=== PATIENT | female | born 1940 | race Two or more races ===

== ENCOUNTER 2025-10-19 15:36 | Emergency (ER) | payer OTHER, MEDICAID ==
[~2025-10-19] VITALS: Ht 165.1 cm; Wt 79.0 kg
--- NOTE | 2025-10-19 15:56 | ED.PDOC ---
History of Present Illness HPI Comments This is a 85 year old female BIBA presenting to the ED with chief complaint of generalized weakness. EMS reports patient's family has noticed patient be more generally weak over the past few days with an associated near syncopal episode today when getting into a car. EMS states patient has been experiencing symptoms of cough, chills, abdominal pain, and diarrhea for the past few days, but no abdominal pain is noted at this time. Patient denies any N/V/D dizziness, fever, chills, headache, or syncope. 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 Family History Family History: Reviewed,noncontributory to illness Social History Smoker: Non-Smoker Alcohol: Denies ETOH Use Drugs: Denies Drug Use Lives In: Home Constitutional: reports: chills, weakness; denies: diaphoresis, fatigue, fever, malaise, sweats, others EENTM: denies: blurred vision, double vision, ear bleeding, ear discharge, ear drainage, ear pain, ear ringing, eye pain, eye redness, hearing loss, mouth pain, mouth swelling, nasal discharge, nose bleeding, nose congestion, nose pain, photophobia, tearing, throat pain, throat swelling, voice changes, others Respiratory: reports: cough; denies: hemoptysis, orthopnea, SOB at rest, shortness of breath, SOB with excertion, stridor, wheezing, others Cardiovascular: reports: lightheadedness; denies: chest pain, dizzy spells, diaphoresis, Dyspnea on exertion, edema, irregular heart beat, left arm pain, palpitations, PND, syncope, others Gastrointestinal: reports: abdominal pain, diarrhea; denies: abdomen distended, blood streaked bowels, constipated, dysphagia, difficulty swallowing, hematemesis, melena, nausea, poor appetite, poor fluid intake, rectal bleeding, rectal pain, vomiting, others Genitourinary: denies: abnormal vagina bleeding, burning, dyspareunia, dysuria, flank pain, frequency, hematuria, incontinence, pain, , vagina discharge , urgency, others Neurological: denies: dizziness, fainting, headache, left sided numbness, left sided weakness, numbness, paresthesia, pre-existing deficit, right sided numbness, right sided weakness, seizure, speech problems, tingling, tremors, weakness, others Musculoskeletal: denies: back pain, gout, joint pain, joint swelling, muscle pain, muscle stiffness, neck pain, others Integumetry: denies: bruises, change in color, change in hair/nails, dryness, laceration, lesions, lumps, rash, wounds, others Allergic/Immunocompromised: denies: Difficulty Healing, Frequent Infections, Hives, Itching, others Hematologic/Lymphatic: denies: anemia, blood clots, easy bleeding, easy bruising, swollen glands, others Endocrine: denies: excessive hunger, excessive sweating, excessive thirst, excessive urination, flushing, intolerance to cold, intolerance to heat, unexplained weight gain, unexplained weight loss, others Psychiatric: denies: anxiety, bipolar disorder, depression, hopeless, panic di sorder, schizophrenia, sleepless, suicidal, others All Other Systems: Reviewed and Negative Physical Exam General Appearance: No Apparent Distress, Normal HEENT: Normal ENT Inspection, Pharynx Normal, TMs Normal Neck: Full Range of Motion, Non-Tender, Normal, Normal Inspection Respiratory: Chest Non-Tender, Lungs Clear, No Accessory Muscle Use, No Respiratory Distress, Normal Breath Sounds Cardiovascular: No Edema, No JVD, No Murmur, No Gallop, Normal Peripheral Pulses, Regular Rate/Rhythm Breast Exam: Deferred Gastrointestinal: No Organomegaly, Non Tender, No Pulsatile Mass, Normal Bowel Sounds, Soft Genitalia: Deferred Pelvic: Deferred Rectal: Deferred Extremities: No calf tenderness, Normal capillary refill, Normal inspection, Normal range of motion, Non-tender, No pedal edema Musculoskeletal : Apperance: Normal Neurologic: Alert, educational psychologist II-XII nml as Tested, No Motor Deficits, Normal Affect, Normal Mood, No Sensory Deficits Cerebellar Function: Normal Reflexes: Normal Skin: Dry, Normal Color, Warm Lymphatic: No Adenopathy Was a procedure done? Was a procedure done?: No Differential Dx Considerations may include: SMALL-BOWEL OBSTRUCTION, GASTROENTERITIS, UROSEPSIS, URINARY TRACT INFECTION X-Ray, Labs, Meds, VS Vital Signs Date Time Temp Pulse Resp B/P (MAP) Pulse Ox O2 Delivery O2 Flow Rate FiO2 10/19/25 19:30 97.7 83 17 168/63 (98) 97 97.7 10/19/25 19:30 83 13 97 Nasal Cannula* 2 28 10/19/25 18:10 86 14 171/78 (109) 96 10/19/25 16:15 86 16 97 Room Air* 0 21 10/19/25 16:10 98.3 86 16 174/78 (110) 97 98.3 10/19/25 15:46 97.7 90 16 171/80 97 97.7 Lab Test 10/19/25 19:08 10/19/25 19:07 10/19/25 16:12 10/19/25 16:10 Range/Units POC Glucose 213 H 70-106 mg/dl Troponin I High Sensitivity 6 3 L </=34 ng/L White Blood Count 6.2 4.4-10.8 10^3/uL Red Blood Count 4.06 4.0-5.20 10^6/uL Hemoglobin 12.9 12.2-16.2 g/dL Hematocrit 38.3 36.0-46.0 % Mean Corpuscular Volume 94.2 80.0-100.0 fL Mean Corpuscular Hemoglobin 31.9 28.0-32.0 pg Mean Corpuscular Hemoglobin Concent 33.8 32.0-36.0 g/dL Red Cell Distribution Width 14.2 11.8-14.3 % Platelet Count 231 140-450 10^3/uL Mean Platelet Volume 8.1 6.9-10.8 fL Neutrophils (%) (Auto) 71.3 37.0-80.0 % Lymphocytes (%) (Auto) 18.6 10.0-50.0 % Monocytes (%) (Auto) 7.2 0.0-12.0 % Eosinophils (%) (Auto) 2.0 0.0-7.0 % Basophils (%) (Auto) 0.9 0.0-2.0 % Neutrophils # (Auto) 4.4 1.6-8.6 10 ^3/uL Lymphocytes # (Auto) 1.2 0.4-5.4 10 ^3/uL Monocytes # (Auto) 0.4 0-1.3 10 ^3/uL Eosinophils # (Auto) 0.1 0-0.8 10 ^3/uL Basophils # (Auto) 0.1 0-0.2 10 ^3/uL Nucleated Red Blood Cells 0.0 % Sodium Level 138 136-145 mmol/L Potassium Level 4.2 3.5-5.1 mmol/L Chloride Level 101 98-107 mmol/L Carbon Dioxide Level 28 20-31 mmol/L Anion Gap 9 5-15 Blood Urea Nitrogen 28 H 9-23 mg/dL Creatinine 1.49 H 0.550-1.02 mg/dL Glomerular Filtration Rate Calc 35 >90 mL/min BUN/Creatinine Ratio 18.8 10.0-20.0 Serum Glucose 112 H 74-106 mg/dL Calcium Level 10.0 8.7-10.4 mg/dL Lipase 30 12-53 U/L Urine Color Light-yellow Yellow Urine Clarity Clear Clear Urine pH 7.0 5.0-9.0 Urine Specific [place] 1.006 1.001-1.035 Urine Protein Negative Negative Urine Ketones Negative Negative Urine Blood Negative Negative /uL Urine Nitrite Negative Negative Urine Bilirubin Negative Negative Urine Urobilinogen Normal Negative mg/dL Urine Leukocyte Esterase Negative Negative /uL Urine RBC None seen 0 - 4 /hpf Urine Microscopic WBC < 1 0-5 /HPF Urine Squamous Epithelial Cells Few <5 /hpf Urine Bacteria None seen None Seen /hpf Urine Glucose Normal Normal mg/dL Current Medications Medications (Trade) Dose Ordered Sig/Yuliet Route Start Time Stop Time Status Last Admin Sodium Chloride 1,000 ml @ 1,000 mls/hr Q1H ONCE IV 10/19/25 19:00 10/19/25 19:59 DC 10/19/25 18:55 X-Ray, Labs, Meds, VS Comment IMAGING WAS REVIEWED BY THIS PROVIDER, THERE IS NO OBVIOUS PATHOLOGICAL OR ACUTE DISEASE PROCESS. PENDING RADIOLOGY REVIEW LABS WERE REVIEWED BY THIS PROVIDER, NO ABNORMALITIES VITAL SIGNS REVIEWED BY THIS PROVIDER, CLINICALLY STABLE SPOKE WITH RICCO ROBLES, HE STATES BUN AND CREATININE ARE WITHIN HIS NORMAL RANGE HE HAS ON FILE. IT WAS DISCUSSED THAT PATIENT WILL BE GIVEN L FLUID, DISCHARGED HOME UPON SUCCESSFUL AMBULATION TO THE BATHROOM AUTHORIZATION NUMBER [id number] Time of 1ST Reevaluation: 16:53 Reevaluation 1ST: Unchanged Patient Education/Counseling: Diagnosis, Treatment, Need For Follow Up (FOLLOW UP WITH PCP NEXT AVAILABLE APPOINTMENT.) Family Education/Counseling: No Family Present SEPSIS Sepsis Screen Date sepsis recognized/suspect: Oct 19, 2025 Time Sepsis recognized/suspect: 1550 Recent Procedure: No On Antibiotic Therapy: No Respiratory Rate >20: No Heart Rate >90: No Temp<36 C (96.8 F) or >38.3 C: No SBP <90 or MAP <65 mmHG: No New Acute Mental Status Change: No Is the patient on CPAP, BIPAP,: No Physician Orders Ct Ab Pel Wo Con-No Oral Or Iv (10/19/25 15:51) Head Without Contrast (10/19/25 15:51) Chest Xray 1 View (10/19/25 15:51) Vital Signs Date Time Temp Pulse Resp B/P (MAP) Pulse Ox O2 Delivery O2 Flow Rate FiO2 10/19/25 19:30 97.7 83 17 168/63 (98) 97 97.7 10/19/25 19:30 83 13 97 Nasal Cannula* 2 28 10/19/25 18:10 86 14 171/78 (109) 96 10/19/25 16:15 86 16 97 Room Air* 0 21 10/19/25 16:10 98.3 86 16 174/78 (110) 97 98.3 10/19/25 15:46 97.7 90 16 171/80 97 97.7 Laboratory Tests Test 10/19/25 16:12 White Blood Count 6.2 10^3/uL (4.4-10.8) Medications Medications Dose Ordered Sig/Yuliet Route Start Time Stop Time Status Last Admin Dose Admin Sodium Chloride 1,000 ml @ 1,000 mls/hr Q1H ONCE IV 10/19/25 19:00 10/19/25 19:59 DC 10/19/25 18:55 Departure 1 Departure Time of Disposition: 21:08 Impression: Primary Impression: Diarrhea Qualified Codes: R19.7 - Diarrhea, unspecified Disposition: 01 HOME / SELF CARE / HOMELESS Condition: Stable Discharged With: Self Critical Care Note Critical Care Time?: No Stability Stability form required: No Heart Score Heart Score: Heart Score Response (Comments) Value History Moderate Suspicious 1 EKG Normal 0 Age >65 2 Risk Factors >3 or Hx ASHD 2 Troponin Normal limit 0 Total 5 I personally scribed for KRISHNA MIN ([email or web address]) on 10/19/25 at 15:56. Electronically submitted by Wes Guadalupe ([email or web address]). KRISHNA MIN Oct 19, 2025 15:56
[2025-10-19 16:15] VITALS: PULSE 86; RESP 16; O2SAT 97
[2025-10-19 16:24] LABS: Hematocrit 38.3 % (36.0-46.0); Hemoglobin 12.9 g/dL (12.2-16.2); Mean Corpuscular Hemoglobin 31.9 pg (28.0-32.0); Mean Corpuscular Volume 94.2 fL (80.0-100.0); Nucleated Red Blood Cells % 0.0 %
[2025-10-19 16:30] LABS: Chloride 101 mmol/L (98-107); Potassium 4.2 mmol/L (3.5-5.1); Sodium 138 mmol/L (136-145)
[2025-10-19 16:31] LABS: Anion Gap 9 (5-15); Carbon Dioxide 28 mmol/L (20-31)
[2025-10-19 16:32] LABS: Calcium 10.0 mg/dL (8.7-10.4)
[2025-10-19 16:36] LABS: BUN/Creatinine Ratio 18.8 (10.0-20.0)
[2025-10-19 16:37] LABS: Lipase 30 U/L (12-53)
[2025-10-19 16:39] LABS: Blood Urea Nitrogen 28 mg/dL (9-23); Glucose 112 mg/dL (74-106)
[2025-10-19 17:30] LABS: Urine Protein, UAD Negative (Negative)
--- NOTE | 2025-10-19 18:12 | DVH ---
CT HEAD WITHOUT CONTRAST Indication: gen weak EXAM DATE: 10/19/2025 05:45 PM COMPARISON: None TECHNIQUE: CT of the head without intravenous contrast. RADIATION DOSE: CTDIvol: 52 mGy, DLP: 927 mGy*cm FINDINGS: There is no intracranial hemorrhage. There is no extra-axial fluid, mass, mass effect or midline shift. The ventricles are midline and normal in size. Basilar cisterns are patent. There are mild periventricular and subcortical white matter chronic microvascular ischemic changes. There is mild global cerebral volume loss. The mastoids are well pneumatized. There is mucosal thickening of the bilateral maxillary sinuses.. Postsurgical changes bilateral orbits. IMPRESSION: No intracranial hemorrhage or mass effect. Mild chronic microvascular ischemic changes. Mild global cerebral volume loss.
--- NOTE | 2025-10-19 18:17 | DVH ---
Exam: CT CT AB PEL WO CON-NO ORAL OR IV History: abd pain Comparison Study: None Technique: Multidetector spiral CT of the abdomen was performed from lung bases to pubic symphysis. Imaging was performed without IV contrast. Axial, coronal and sagittal multiplanar reformats were obtained from the axial data set by the technologist. Radiation Dose : 1. Abdomen/Pelvis: CTDIvol 20.09 mGy, DLP 956.05 mGy*cm. Findings: Evaluation of solid organs is limited due to lack of intravenous contrast use. There is a trace left pleural effusion with associated atelectasis. There is septal and bronchial wall thickening. Multiple layering gallstones. The liver, spleen, and adrenal glands are within normal limits. The pancreas is atrophic. Mild atrophy of the kidneys bilaterally. The urinary bladder is mildly distended. Status post hysterectomy. Small hiatal hernia. The small bowel and appendix are within normal limits. The colon is unremarkable. No enlarged intra-abdominal lymph nodes. Atherosclerotic calcifications of the abdominal aorta. 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 There is 5 mm of retropulsion. The bones are demineralized. Moderate disc height loss with vacuum disc phenomenon L5-S1 and within the lower thoracic spine. Moderate degenerative changes of the sacroiliac joint bilaterally. 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 Mild urinary bladder distention Radiation optimization: All CT scans at this facility use at least one of these dose optimization techniques: automated exposure control mA and/or kV adjustment per patient size (includes targeted exams where dose is matched to clinical indication) or iterative reconstruction.
--- NOTE | 2025-10-19 18:27 | DVH ---
CLINICAL HISTORY: gen weak TECHNIQUE: AP view of the chest was obtained. WID: COMPARISON: None FINDINGS: Lungs: There is trace septal thickening with scattered pleural parenchymal scarring. There is parenchymal banding within the right mid and lower lung. There is peribronchial wall thickening. Trace left effusion. Cardiomediastinal silhouette: normal in size Bones: No acute osseous abnormality. Imaged Upper Abdomen: unremarkable. IMPRESSION: Interstitial pulmonary edema with right mid and lower lung atelectasis. Trace left pleural effusion.
[2025-10-19] MEDS: SODIUM CHLORIDE 0.9% 1,000 ML IV ONE (18:55)
[2025-10-19 19:30] VITALS: PULSE 83; RESP 13; TEMP 97.7; O2SAT 97
[2025-10-19 21:00] VITALS: BP 176/82; PULSE 82; RESP 13; O2SAT 97
== END 2025-10-19 21:25 | disposition home or self-care (01) ==
LOC: ER 15:36 → EDBD 15:36 → ER 21:25
DX: R19.7 Diarrhea, unspecified (principal); R51.9 Headache, unspecified; J44.9 Chronic obstructive pulmonary disease, unspecified; F41.9 Anxiety disorder, unspecified; I10 Essential (primary) hypertension; E11.9 Type 2 diabetes mellitus without complications; Z79.899 Other long term (current) drug therapy
CPT/HCPCS: 36415; 70450; 71045; 74176; 80048; 81001; 82947; 83690; 84484; 85025; 96360; 99285; J7030; 82962